=== PATIENT | male | born 1990 | race Caucasian/White ===

== ENCOUNTER 2023-04-09 18:16 | Emergency (ER) | payer BC | END 2023-04-09 19:09 | disposition left against medical advice (07) | LOC: ERS 18:16 | DX: Z53.21 Procedure and treatment not carried out due to patient leaving prior to being seen by health care provider (principal) ==

== ENCOUNTER 2024-08-06 10:51 | Outpatient (CLI) | payer BC | END 2024-08-06 10:52 | disposition home or self-care (01) | LOC: BICRAD 10:51 | PROVIDERS: ATTEND Nurse Practitioner Family | DX: M25.552 Pain in left hip (principal) ==